=== PATIENT | male | born 1975 | race Caucasian/White ===

== ENCOUNTER 2021-04-14 15:11 | Emergency (ER) | payer OTHER, SELFPAY ==
[2021-04-14 15:28] VITALS: BP 128/82; PULSE 87; RESP 20; TEMP 36.7; O2SAT 100
--- NOTE | 2021-04-14 16:34 | ED.GENADULT ---
HPI - General Adult General Chief complaint: Upper Respiratory Infection Stated complaint: cough Time Seen by Provider: 04/14/21 16:34 Source: patient and RN notes reviewed Mode of arrival: ambulatory Limitations: no limitations History of Present Illness HPI narrative: 45-year-old male presents with complaints of upper respiratory infection symptoms, body aches, sore throat, headaches (not the worst of his life) for the past 2-3 days. Jose Alberto reports constant symptoms with fever (started on 04/13/21). ?NyQuil, last today at 06:00 with relief. ?Fever, highest 100.6 Fahrenheit, orally, with intermittent chills. No drooling, neck or throat swelling. Pain is bilateral. Hurts to swallow. No exacerbation factors. Rhinorrhea and nasal congestion. Cough without chest congestion. No voice change. No nausea, vomiting, or abdominal pain. Tolerating liquids well. Denies dyspnea, difficulty swallowing, jaw pain, dental pain, facial pain, foreign body sensation, and rash. Remains active. The patient reports he has not been diagnosed with COVID-19.? The patient reports he tested NEGATIVE for COVID-19 on 04/13/2021. The patient reports he received 2 Pfizer COVID-19 vaccines. The patient reports he is not waiting for the results of a COVID-19 lab test.?The patient reports he does not have weakness or fatigue. Denies chest pain.? The patient reports she does not have any loss of taste or smell, and diarrhea. Denies recent traveling.? Denies concerns for COVID-19 or exposures.? At this time, the patient is not suspected of having COVID-19. ? Some parts of this dictation were generated by voice recognition software and may contain typographical and/or grammatical inaccuracies. Related Data Allergies Allergy/AdvReac Type Severity Reaction Status Date / Time No Known Allergies Allergy Unverified 04/14/21 16:44 Review of Systems Review of Systems: Narrative: CONSTITUTIONAL: Complains of fever, chills. Denies sweats. EYES: Denies visual changes, redness, discharge. ENT: Denies otalgia. Complains of rhinorrhea, sore throat, congestion. CARDIOVASCULAR: Denies chest pain, palpitations, edema. RESPIRATORY: Denies dyspnea, wheezing. Complaints of cough. GASTROINTESTINAL: Denies abdominal pain, nausea, vomiting, diarrhea. GENITOURINARY: Denies dysuria, hematuria, abnormal discharge. SKIN: Denies rash or itching. MUSCULOSKELETAL: Denies acute back pain, joint pain, or myalgia. Complaints of body aches. NEUROLOGIC: Denies numbness or focal weakness. Complaints of LANDA. PSYCHIATRIC: Denies anxiety or depression. All systems reviewed & are unremarkable except as noted in HPI and below. [facility] Past Medical History Medical History (Updated 04/15/21 @ 00:00 by Alanna Pak) No significant past medical history Surgical History Surgical History (Updated 04/14/21 @ 16:50 by MILIND Arthur) No significant past surgical history Family History Family History (Updated 04/14/21 @ 16:51 by MILIND Arthur) Father Cancer Mother Asthma Diabetes mellitus Social History Social History (Updated 04/14/21 @ 16:52 by MILIND Arthur) Smoking status: Former smoker Tobacco type: cigarettes Second hand tobacco smoke exposure: No Smoking end date: 11/04/10 Alcohol intake: current Alcohol use details: rarely Substance use: never Substance use type: does not use Living arrangements: with family Occupation/Education: occupation Gender identity (if verbalized by the patient): Male Comments At time of signature, agree with the nurse past medical, surgical, social, and family history. There is no relevant family history pertinent to the presenting complaint. Exam Narrative: Exam Narrative: GENERAL: This is a well-nourished, well-developed patient, in no apparent distress. Speaks in full sentences without deficits and ambulates with steady gait without dyspnea. HEAD: Normocephalic, a
== END 2021-04-14 17:07 | disposition home or self-care (01) ==
PROVIDERS: Emergency Provider Nurse Practitioner Family
DX: B34.9 Viral infection, unspecified (principal); Z87.891 Personal history of nicotine dependence
CPT/HCPCS: 87081; 87804; 87880; 99213; G0463

== ENCOUNTER 2025-05-06 10:52 | Outpatient (CLI) | payer OTHER, SELFPAY ==
--- OUTSIDE RECORDS SUMMARY | 2025-05-06 10:58 | XMS_ITS | Clinical Summary ---
Author Organization [facility] Address [address] [place] [id number] Care Team Providers Care Processing Spec Name Role Phone Unavailable Primary Care Provider Unavailabl e Social History Tobacco Use Types Packs/Day Years Used Date Smoking Tobacco: Never Assessed Sex and Gender Information Value Date Recorded Sex Assigned at Not on file Legal Sex Male 6:04 PM CDT Gender Identity Not on file Sexual Orientation Not on file Plan of Treatment Health Maintenance Due Date Last Done Comments Colorectal Cancer Screening Colonoscopy (10 Years) 1976 Annual Physical 1979 Hepatitis C 1994 DTaP, Tdap and Td Vaccines ( 1 - Tdap) 1995 Hepatitis B Vaccines (1 of 3 - 19+ 3-dose series) 1995 COVID-19 Vaccine (2023-2 5 season) 2024 Meningococcal B Vaccine Aged Out No l onger eligible based on patient's age to complete this topic Meningococcal Vaccine Aged Out No korin michelle eligible based on patient's age to complete this topic Pneumococcal Vaccine: Pediat rics (0 to 5 Years) and At-Risk Patients (6 to 49 Years) Aged Out No longer eligible b ased on patient's age to complete this topic RSV Immunizations Under 20 Months Aged Out No longer eligible based on patient's age to complete this topic
[2025-05-06 11:37] LABS: Alanine Aminotransferase 23 U/L (6-50); Albumin Level 4.6 g/dL (3.5-5.1); Alkaline Phosphatase 53 U/L (38-126); Anion Gap 10 mmol/L (4-12); Aspartate Amino Transferase 29 U/L (17-59); Bilirubin,Total 1.1 mg/dL (0.2-1.3); Blood Urea Nitrogen 9 mg/dL (9-20); Calcium 9.7 mg/dL (8.4-10.2); Carbon Dioxide 27 mmol/L (22-30); Chloride 103 mmol/L (98-107); Estimated Glomerular Filt Rate > 60; Glucose 95 mg/dL (65-110); Potassium 3.8 mmol/L (3.4-5.0); Sodium 140 mmol/L (137-145); Total Protein 7.9 g/dL (6.3-8.2)
== END 2025-05-06 10:53 | disposition home or self-care (01) ==
LOC: ANHLAB 10:55
PROVIDERS: Visit Provider Podiatrist Foot & Ankle Surgery
DX: B07.9 Viral wart, unspecified (principal)
CPT/HCPCS: 36415; 80053